=== PATIENT | male | born 1955 | race Caucasian/White ===

== ENCOUNTER 2018-02-26 12:53 | Emergency (ER) | payer SELFPAY ==
[2018-02-26] MEDS: IBUPROFEN 800 MG TAB PO (14:29)
== END 2018-02-26 15:45 | disposition home or self-care (01) ==
LOC: FTE 12:53
DX: M25.511 Pain in right shoulder (principal); I10 Essential (primary) hypertension; Z87.891 Personal history of nicotine dependence
CPT/HCPCS: 73030; 73030-RT; 99283-25